=== PATIENT | male | born 1955 ===

== ENCOUNTER 2022-01-18 06:18 | Day surgery (SDC) | payer OTHER ==
[~2022-01-18] VITALS: Ht 182.9 cm; Wt 92.1 kg
[~2022-01-18 06:18] MED LIST: ACID REDUCER20 M1 PO; ADULT LOW DOSE81 M1 PO; CRESTOR10 MG PO; FOLIC ACID0.8 M1 PO; PLAVIX75 MG PO; TOPROL XL50 M1 PO; ZETIA10 MG PO
[2022-01-19] MEDS ORDERED: TAMS0.4C PO (05:36)
== END 2022-01-18 19:00 | disposition home or self-care (01) ==
LOC: CIR.AMB 06:18
PROVIDERS: ATTEND Colon & Rectal Surgery
DX: K61.0 Anal abscess (principal); K62.89 Other specified diseases of anus and rectum; Z20.822 Contact with and (suspected) exposure to COVID-19; I25.10 Atherosclerotic heart disease of native coronary artery without angina pectoris; Z95.5 Presence of coronary angioplasty implant and graft; Z79.82 Long term (current) use of aspirin

== ENCOUNTER 2022-01-18 23:29 | Emergency (ER) | payer OTHER ==
[~2022-01-18] VITALS: Ht 182.9 cm; Wt 92.1 kg
[2022-01-19] MEDS ORDERED: TAMS0.4C PO (05:36)
== END 2022-01-19 05:44 ==
LOC: ER 23:29
DX: N40.1 Benign prostatic hyperplasia with lower urinary tract symptoms (principal); R33.8 Other retention of urine; I10 Essential (primary) hypertension